=== PATIENT | male | born 1975 | race Caucasian/White ===

== ENCOUNTER 2022-02-12 10:08 | Emergency (ER) | payer OTHER ==
[~2022-02-12] VITALS: Ht 177.8 cm; Wt 81.6 kg
[2022-02-12] MEDS ORDERED: MUPIROCIN1 G1 TOP (10:55)
[2022-02-12] MEDS ORDERED: HIBICLENS118 ML TOP (10:55)
[2022-02-12] MEDS ORDERED: AMOX-CLAV 875-1 EACH PO (10:55)
== END 2022-02-12 11:04 | disposition home or self-care (01) ==
LOC: ER 10:08
DX: S80.862A Insect bite (nonvenomous), left lower leg, initial encounter (principal); L03.116 Cellulitis of left lower limb; W57.XXXA Bitten or stung by nonvenomous insect and other nonvenomous arthropods, initial encounter; Y93.9 Activity, unspecified; Y92.9 Unspecified place or not applicable; Y99.9 Unspecified external cause status